=== PATIENT | female | born 1990 | race Caucasian/White ===

== ENCOUNTER 2016-10-03 04:49 | Emergency (ER) | payer OTHER ==
[~2016-10-03] VITALS: Ht 170.2 cm; Wt 77.2 kg
[~2016-10-03 04:49] MED LIST: ACYC400T2 PO; BACTDS PO; BUPR-34 PO; CEPH-443 PO; CLON-429 PO; HYDR-762 PO; TRAZ50TA18 PO
[2016-10-03 04:56] VITALS: Ht 170.2 cm; Wt 77.2 kg
[2016-10-03] MEDS ORDERED: KETOROLAC 30 MG INJ IM STA (05:26)
[2016-10-03] MEDS ORDERED: CLIN-73 PO (05:27)
[2016-10-03] MEDS ORDERED: IBUP-1542 PO (05:27)
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
== END 2016-10-03 06:14 | disposition home or self-care (01) ==
LOC: FTE 04:49
DX: K04.7 Periapical abscess without sinus (principal); F17.210 Nicotine dependence, cigarettes, uncomplicated; Z96.651 Presence of right artificial knee joint
CPT/HCPCS: 99283